=== PATIENT | female | born 1985 | race Caucasian/White ===

== ENCOUNTER 2016-07-21 18:00 | Emergency (ER) | payer BC ==
[2016-07-21 18:55] VITALS: RESP 16; TEMP 98
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
[2016-07-21] MEDS ORDERED: KETOROLAC 60 MG/2 ML VIAL IM ONE (20:00)
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
== END 2016-07-21 20:14 | disposition home or self-care (01) ==
LOC: ER 18:00
DX: S16.1XXA Strain of muscle, fascia and tendon at neck level, initial encounter (principal); R51 Headache; S00.83XA Contusion of other part of head, initial encounter; S40.022A Contusion of left upper arm, initial encounter; S80.811A Abrasion, right lower leg, initial encounter; S80.211A Abrasion, right knee, initial encounter; Y04.8XXA Assault by other bodily force, initial encounter
CPT/HCPCS: 70450; 72125; 96372; 99282; 99283; J1885